=== PATIENT | female | born 1990 | race Caucasian/White ===

== ENCOUNTER → 2024-03-15 15:50 | Outpatient (CLI) | payer OTHER, SELFPAY ==
[2024-03-15 16:52] LABS: Basophils Absolute Auto 100 /uL (0-100); Basophils Percent Auto 1.2 % (0-2); Eosinophils Absolute Auto 300 /uL (0-450); Eosinophils Percent Auto 2.4 % (2-4); Hematocrit 39.3 % (36-46); Hemoglobin 13.4 g/dL (12.0-16.0); Lymphocytes Absolute Auto 5100 /uL (1100-4500); Lymphocytes Percent Auto 45.6 % (25-40); Mean Corpuscular Hemoglobin 26.9 PG (26-34); Mean Corpuscular Volume 78.9 fL (80-100); Monocytes Absolute Auto 600 /uL (0-900); Monocytes Percent Auto 5.2 % (3-14); Neutrophils Absolute Auto 5100 /uL (1500-7000); Neutrophils Percent Auto 45.6 % (50-75); Platelet Count 132 X10^3/uL (150-400); Red Blood Cell Count 4.98 X10^6/uL (4.0-5.2); Red Cell Distribution Width 14.8 % (11.6-14.8); White Blood Cell Count 11.2 X10^3/uL (4.5-11.0)
[2024-03-15 17:31] LABS: Add Manual Diff / Slide Review SLIDE REVIEW; Erythrocyte Sedimentation Rate 14 MM/HR (0-20)
[2024-03-15 17:33] LABS: RBC Morphology Normal Morphology
[2024-03-16 09:51] LABS: TSH w/ Reflex to FT4 2.18 uIU/mL (0.47-4.68)
== END ==
LOC: LAB 15:51
PROVIDERS: Family Provider Family Medicine; PCP Family Medicine; Referring Provider Family Medicine; Visit Provider Family Medicine
DX: R19.7 Diarrhea, unspecified (principal)
CPT/HCPCS: 84443; 85025; 85651

== ENCOUNTER → 2024-03-16 08:15 | Outpatient (CLI) | payer OTHER, SELFPAY ==
[2024-03-16 09:06] LABS: Alanine Aminotransferase 22 IU/L (<35); Albumin Globulin Ratio 1.2 (1.0-2.8); Alkaline Phosphatase 83 U/L (38-126); Aspartate Aminotransferase 20 IU/L (14-36); BUN Creatinine Ratio 16.7 (6-22); Bilirubin Total 0.3 mg/dL (0.2-1.3); Blood Urea Nitrogen 10 mg/dL (7-17); Calcium 9.1 mg/dL (8.4-10.2); Carbon Dioxide 25 mmol/L (22-32); Chloride 108 mmol/L (98-107); Estimated Glomerular Filt Rate > 60 mL/min (>60); Globulin 3.3 g/dL (1.7-4.1); Glucose 112 mg/dL (70-100); HEMOLYSIS < 15 (0-50); Potassium 3.7 mmol/L (3.4-5.1); Sodium 140 mmol/L (137-145); Total Protein 7.3 g/dL (6.3-8.2)
[2024-03-16 09:26] LABS: Occult Blood 1 Negative (Negative); Occult Blood 2 Negative (Negative); Occult Blood 3 Negative (Negative)
== END ==
PROVIDERS: Family Provider Family Medicine; PCP Family Medicine; Referring Provider Family Medicine; Visit Provider Family Medicine
DX: Z12.11 Encounter for screening for malignant neoplasm of colon (principal); R19.7 Diarrhea, unspecified
CPT/HCPCS: 80053; 82270; 83516; 83993

== ENCOUNTER 2024-05-13 17:11 | Emergency (ER) | payer OTHER, SELFPAY ==
[2024-05-13 17:30] VITALS: BP 182/109; PULSE 83; RESP 16; O2SAT 98; BMI 47.5
[2024-05-13 18:08] LABS: Add Manual Diff / Slide Review NO; Basophils Absolute Auto 200 /uL (0-100); Basophils Percent Auto 1.3 % (0-2); Eosinophils Absolute Auto 500 /uL (0-450); Eosinophils Percent Auto 3.6 % (2-4); Hematocrit 39.9 % (36-46); Hemoglobin 13.5 g/dL (12.0-16.0); Lymphocytes Absolute Auto 4900 /uL (1100-4500); Lymphocytes Percent Auto 33.9 % (25-40); Mean Corpuscular HGB Conc 33.7 % (30-36); Mean Corpuscular Volume 79.9 fL (80-100); Monocytes Absolute Auto 800 /uL (0-900); Monocytes Percent Auto 5.6 % (3-14); Neutrophils Absolute Auto 8000 /uL (1500-7000); Neutrophils Percent Auto 55.6 % (50-75); Platelet Count 395 X10^3/uL (150-400); Red Cell Distribution Width 14.9 % (11.6-14.8); White Blood Cell Count 14.3 X10^3/uL (4.5-11.0)
[2024-05-13 18:17] LABS: Alanine Aminotransferase 28 IU/L (<35); Albumin 4.3 g/dL (3.5-5.0); Albumin Globulin Ratio 1.2 (1.0-2.8); Alkaline Phosphatase 90 U/L (38-126); Aspartate Aminotransferase 24 IU/L (14-36); BUN Creatinine Ratio 7.9 (6-22); Bilirubin Total 0.4 mg/dL (0.2-1.3); Blood Urea Nitrogen 5 mg/dL (7-17); Calcium 8.9 mg/dL (8.4-10.2); Carbon Dioxide 20 mmol/L (22-32); Chloride 108 mmol/L (98-107); Estimated Glomerular Filt Rate > 60 mL/min (>60); Globulin 3.6 g/dL (1.7-4.1); Glucose 95 mg/dL (70-100); HEMOLYSIS < 15 (0-50); Lipase 212 U/L (23-300); Potassium 3.7 mmol/L (3.4-5.1); Sodium 139 mmol/L (137-145); Total Protein 7.9 g/dL (6.3-8.2)
[2024-05-13 22:13] VITALS: BP 156/81; PULSE 88; RESP 18; TEMP 36.5; O2SAT 100
[2024-05-14 01:30] VITALS: BP 152/106; PULSE 82; RESP 18; TEMP 36.5; O2SAT 100
--- NOTE | 2024-05-14 03:33 | PC.NURSE ---
Pt requested to have ultrasound guided IV removed. Advised pt that we do not have another US tech on site to place if she is in need of one, pt still requesting removal of IV.
--- NOTE | 2024-05-14 06:48 | PC.NURSE ---
Pt states that she had a one time episode of blood in toilet while at work. She has a history of hemrroids. Pt asking for exam and work not for 05/13 & 05/14
[2024-05-14 07:00] VITALS: BP 141/81; PULSE 83; O2SAT 97
--- NOTE | 2024-05-14 07:22 | ED.GIBLEED ---
HPI - GI Bleed General Chief complaint: GI Bleed Stated complaint: rectal bleeding Time Seen by Provider: 05/14/24 06:56 Source: patient Mode of arrival: Ambulatory History of Present Illness HPI Narrative: 34-year-old female presents for bright red blood in her stools yesterday. Reports history of internal hemorrhoids. Single bloody bowel movement, patient has been in the emergency department for 14 hours and has had no further episodes of bleeding. Denies history of abdominal surgeries, denies abdominal pain. Related Data Previous Rx's Medication Instructions Recorded cyclobenzaprine 10 mg tablet 10 mg PO HSP PRN #10 tabs 11/22/17 fluoxetine 40 mg capsule 40 mg PO DAILY #90 caps 11/23/23 propranolol 10 mg tablet 10 mg PO BID #180 tabs 11/23/23 losartan 25 mg tablet 25 mg PO DAILY #90 tabs 02/05/24 pantoprazole 40 mg tablet,delayed 40 mg PO DAILY #90 tabs 02/05/24 release dextroamphetamine-amphetamine 5 mg 5 mg PO BID #60 tabs 04/26/24 tablet (Adderall) dextroamphetamine-amphetamine 5 mg 5 mg PO BID #60 tabs 04/26/24 tablet (Adderall) dextroamphetamine-amphetamine 5 mg 5 mg PO BID #60 tabs 04/26/24 tablet (Adderall) Allergies Allergy/AdvReac Type Severity Reaction Status Date / Time No Known Drug Allergies Allergy Unverified 05/06/24 14:45 Review of Systems Review of Systems Narrative: See HPI Patient History Medical History Diarrhea Neck pain Migraines Anxiety ADHD Hypertension Surgical History Hx of appendectomy Social History Smoking Status: Never smoker Smoking Status: Never smoker alcohol intake frequency: other Substance Use Type: does not use Exam Initial Vital Signs Initial Vital Signs: Vital Signs Pulse Rate 83 05/13/24 17:30 Respiratory Rate 16 05/13/24 17:30 Blood Pressure 182/109 H 05/13/24 17:30 Pulse Oximetry 98 05/13/24 17:30 Oxygen Delivery Method Room Air 05/13/24 17:30 Const: Awake, alert, no acute distress, nontoxic appearing Cardiac: regular rate, regular rhythm RESP: unlabored, clear bilaterally, no wheezing GI: Soft, nontender, nondistended, no rebound, no guarding Rectal: Lead Electrical Engineer present, no external hemorrhoids, no gross blood, rectal tone intact Skin: Warm, Dry, intact, no rashes Neuro: AO x3, CN II-XII grossly intact, moves all extremities Course Orders Ordered: Discontinued Medications Ondansetron HCl (Ondansetron 4 Mg/2 Ml Inj) 4 mg IV NOW PRN PRN Reason: Nausea And Vomiting Ondansetron HCl (Ondansetron 4 Mg Odt) 4 mg PO NOW PRN PRN Reason: Nausea And Vomiting Vital Signs Vital signs: Vital Signs - 8 hr 05/14/24 07:00 05/14/24 07:00 Pulse Rate 83 Blood Pressure 141/81 H Pulse Oximetry 97 MDM - GI Bleed Differential Diagnosis Differential diagnosis: Likely hemorrhoids, infectious diarrhea and gastritis Lab Data 05/13/24 17:50 05/13/24 17:50 Labs: Lab Results 05/13/24 Range/Units 17:50 WBC 14.3 H (4.5-11.0) X10^3/uL RBC 5.00 (4.0-5.2) X10^6/uL Hgb 13.5 (12.0-16.0) g/dL Hct 39.9 (36-46) % MCV 79.9 L (80-100) fL MCH 27.0 (26-34) PG MCHC 33.7 (30-36) % RDW 14.9 H (11.6-14.8) % Plt Count 395 (150-400) X10^3/uL Neut % (Auto) 55.6 (50-75) % Lymph % (Auto) 33.9 (25-40) % [place] % (Auto) 5.6 (3-14) % Eos % (Auto) 3.6 (2-4) % Baso % (Auto) 1.3 (0-2) % Neut # (Auto) 8000 H (9721-8015) /uL Lymph # (Auto) 4900 H (2638-5659) /uL [place] # (Auto) 800 (0-900) /uL Eos # (Auto) 500 H (0-450) /uL Baso # (Auto) 200 H (0-100) /uL Sodium 139 (137-145) mmol/L Potassium 3.7 (3.4-5.1) mmol/L Chloride 108 H (98-107) mmol/L Carbon Dioxide 20 L (22-32) mmol/L BUN 5 L (7-17) mg/dL Creatinine 0.63 (0.52-1.04) mg/dL Estimated GFR > 60 (>60) mL/min BUN/Creatinine Ratio 7.9 (6-22) Glucose 95 (70-100) mg/dL Calcium 8.9 (8.4-10.2) mg/dL Total Bilirubin 0.4 (0.2-1.3) mg/dL AST 24 (14-36) IU/L ALT 28 (<35) IU/L Alkaline Phosphatase 90 (38-126) U/L Total Protein 7.9 (6.3-8.2) g/dL Albumin 4.3 (3.5-5.0) g/dL Globulin 3.6 (1.7-4.1) g/dL Albumin/Globulin Ratio 1.2 (1.0-2.8) Lipase 212 (23-300) U/L MDM Narrative Medical decision making narrative: Single episode of blood in stool over 12 hours ago. Abdomen soft, nontender. No gross blood on exam. Hemoglobin 13.5. At this time no indication for advanced imaging or further workup in the emergency department. Patient states that she was mostly here today for a note for work. She has an upcoming appointment next week with her primary care doctor for referral to GI for possible colonoscopy due to chronic diarrhea. Patient counseled to keep her appointment next week as scheduled. ED return precautions discussed at bedside. Note for work provided. Discharge Plan Departure Patient Disposition: Home Clinical Impression: Bright red rectal bleeding, Tendinitis of right hand Instructions: DI for Hemorrhoids Activity Restrictions/Additional Instructions: Your hemoglobin today is 13.5. Make sure that you keep your appointment next Monday with your doctor to go over possibilities of getting a colonoscopy. Prescriptions: No Action fluoxetine 40 mg capsule 40 mg PO DAILY Qty: 90 3RF propranolol 10 mg tablet 10 mg PO BID Qty: 180 3RF dextroamphetamine-amphetamine [Adderall] 5 mg tablet 5 mg PO BID Qty: 60 0RF dextroamphetamine-amphetamine [Adderall] 5 mg tablet 5 mg PO BID Qty: 60 0RF Rx Instructions: administer doses at least 4-6 hours apart dextroamphetamine-amphetamine [Adderall] 5 mg tablet 5 mg PO BID Qty: 60 0RF Rx Instructions: administer doses at least 4-6 hours apart cyclobenzaprine 10 MG tablet 10 mg PO HSP PRNQty: 10 0RF pantoprazole 40 mg tablet,delayed release (DR/EC) 40 mg PO DAILY Qty: 90 3RF losartan 25 mg tablet 25 mg PO DAILY Qty: 90 3RF Referrals: Maria Luz Beverly MD [Primary Care Provider] - Stand Alone Forms: Patient Portal/API, Work Release Note
== END 2024-05-14 07:30 | disposition home or self-care (01) ==
PROVIDERS: Emergency Medicine; Emergency Provider Emergency Medicine; Family Provider Family Medicine; PCP Family Medicine
DX: K62.5 Hemorrhage of anus and rectum (principal); M77.8 Other enthesopathies, not elsewhere classified
CPT/HCPCS: 80053; 83690; 85025; 99281; 99283

== ENCOUNTER 2024-07-18 12:54 | Day surgery (SDC) | payer OTHER, SELFPAY ==
--- NOTE | 2024-07-18 | PATH_ITS ---
[facility] Accession Number: [id number] No. of containers..04 Tissue . 01 Material submitted: . PART A: duodenum - DUODENUM PART B: colon - RIGHT COLON PART C: colon - TRANSVERSE PART D: colon - LEFT COLON . 01 Diagnosis: A. DUODENUM, BIOPSY: Duodenal mucosa with no diagnostic abnormality. Negative for active inflammation, features of sprue, dysplasia, or malignancy. . B-D: RIGHT COLON, TRANSVERSE, LEFT COLON, BIOPSIES: Lymphocytic colitis. Negative for granulomas, dysplasia, and malignancy. MRV 07/23/2024 1132 Local . 01 Electronically signed: . Tanesha Leung MD, Pathologist NPI- [id number] . 01 Gross description: . A. Received in formalin with two patient identifiers and duodenum, are two olmos soft tissue fragments, 0.2 to 0.3 cm in greatest dimension. Submitted in A1. B. Received in formalin with two patient identifiers and right colon, are two olmos soft tissue fragments, both measuring 0.3 cm in greatest dimension. Submitted in B1. C. Received in formalin with two patient identifiers and transverse colon, are three olmos soft tissue fragments, 0.2 to 0.3 cm in greatest dimension. Submitted in C1. D. Received in formalin with two patient identifiers and left colon, are two olmos soft tissue fragments, 0.2 to 0.6 cm in greatest dimension. Submitted in D1. ([id number]) /MRV 07/21/2024 1207 Local . 01 Pathologist provided ICD-10: K52.89 . 01 CPT . 668842, 050142, 509406, 102825 Specimen Comment: A courtesy copy of this report has been sent to [phone] Performed at: [address] [facility] [address] [address] [address], [place], [place] [id number] MD Alex Jones MD Phone: [phone]
[2024-07-18] MEDS: LACTATED RINGERS 1,000 ML 42 ML IV (13:21)
--- NOTE | 2024-07-18 13:21 | PM.HP.1 ---
History of Present Illness History of Present Illness Date Patient Seen: 07/18/24 Time Patient Seen: 13:21 Chief complaint: EGD/Colonoscopy Narrative: Jm is a 34 year woman who presents with chronic diarrhea and rectal bleeding. See the prior office note from May for details. [facility] Medical History Diarrhea Neck pain Migraines Anxiety ADHD Hypertension Surgical History Hx of appendectomy Social History marital status: unmarried,single details: Pt. lives with her parents and younger brother. household members: family lives independently: Yes occupational status: employed Smoking Status: Never smoker alcohol intake: never Meds Home Medications and Allergies Home Medications Medication Instructions Recorded Confirmed Type cyclobenzaprine 10 mg tablet 10 mg PO HSP PRN #10 tabs 11/22/17 06/03/24 Rx fluoxetine 40 mg capsule 40 mg PO DAILY #90 caps 11/23/23 06/03/24 Rx propranolol 10 mg tablet 10 mg PO BID #180 tabs 11/23/23 06/03/24 Rx losartan 25 mg tablet 25 mg PO DAILY #90 tabs 02/05/24 06/03/24 Rx pantoprazole 40 mg tablet,delayed 40 mg PO DAILY #90 tabs 02/05/24 06/03/24 Rx release dextroamphetamine-amphetamine 5 mg 5 mg PO BID #60 tabs 04/26/24 06/03/24 Rx tablet (Adderall) dextroamphetamine-amphetamine 5 mg 5 mg PO BID #60 tabs 04/26/24 06/03/24 Rx tablet (Adderall) dextroamphetamine-amphetamine 5 mg 5 mg PO BID #60 tabs 04/26/24 06/03/24 Rx tablet (Adderall) [id number] PO PRN 06/03/24 06/03/24 History [Excedrin Extra Strength] sodium,potassium,mag sulfates 17.5 See Rx Instructions PO .COMPLEX 06/10/24 Rx gram-3.13 gram-1.6 gram oral soln #354 mL (Suprep Bowel Prep Kit) Allergies Allergy/AdvReac Type Severity Reaction Status Date / Time No Known Drug Allergies Allergy Unverified 06/03/24 09:27 Exam Const General: healthy appearing Resp Effort & Inspection: normal respiratory effort Assessment & Plan Assessment and plan (1) Rectal bleeding: Status: Acute (2) Diarrhea: Qualifiers: Diarrhea type: unspecified type Qualified Code(s): R19.7 - Diarrhea, unspecified Status: Acute Plan EGD and colonoscopy Time-Based Coding :: [TOTAL MINUTES] spent with patient and on the chart (including review of chart, obtaining history, exam, reviewing outside data, placing orders, documenting exam and treatment plan, and counseling patient) on [DATE].
[2024-07-18 13:29] VITALS: BP 138/84; PULSE 116; RESP 18; TEMP 36.6; BMI 44.6
--- NOTE | 2024-07-18 13:55 | PM.OP.EC ---
Operative Date/Time/Diagnoses Date of procedure: 07/18/24 Time of procedure: 13:55 Pre-op diagnosis: Chronic diarrhea and rectal bleeding Post-op diagnosis: same Procedure & Clinicians Study performed: EGD and colonoscopy Same procedure as scheduled: Yes Surgeon: Steven Shipley Procedure Notes Procedure in detail: Surgeon: Steven Shipley MD Anesthesia: Bibiana Masters CRNA Procedure in detail: A timeout was performed. A bite blocked was placed and monitors were attached to the patient. The patient was positioned in the left lateral decubitus position. Sedation was administered. Once the patient was sedated the endoscope was inserted through the bite block and passed through the esophagus and stomach and into the duodenum. No abnormalities were seen. Random biopsies were taken from the duodenal mucosa with forceps. We then withdrew the scope into the stomach. No abnormalities were seen. The endoscope was retroflexed and no significant hiatal hernia was seen. The endoscope was straightned and withdrawn into the esophagus. No abnormalities were seen in the esophagus. EGD findings: Normal EGD Next we repositioned the patient for a colonoscopy. A digital rectal exam was performed and was normal. The colonoscope was inserted and advanced to the cecum. The appendiceal orifice was identified and photographed. The scope was slowly withdrawn over greater than 6 minutes. No abnormalities were identified. Random biopsies were taken with the cold forceps from the right colon, transverse colon and left colon. The scope was retroflexed in the rectum. No other abnormalities were identified. Colonoscopy findings: Normal colon Total procedural EBL: 5 mL Scope withdrawal time: 8 minutes Sedation minutes: 20 minutes Post-procedure Disposition: PACU
[2024-07-18 13:58] VITALS: BP 125/81; PULSE 78; RESP 14; TEMP 36.4; O2SAT 97
[2024-07-18 14:02] VITALS: BP 126/83; PULSE 78; RESP 13; O2SAT 97
[2024-07-18 14:23] VITALS: BP 122/72; PULSE 74; RESP 16; TEMP 36.8; O2SAT 98
== END 2024-07-18 14:33 | disposition home or self-care (01) ==
PROVIDERS: Family Provider Family Medicine; PCP Family Medicine; Referring Provider Surgery; Visit Provider Surgery
PROC: 0DJ08ZZ Inspection of Upper Intestinal Tract, Via Natural or Artificial Opening Endoscopic (ICD-10-PCS; CPT 45380; principal; 2024-07-18 14:30)
PROC: 0DJD8ZZ Inspection of Lower Intestinal Tract, Via Natural or Artificial Opening Endoscopic (ICD-10-PCS; CPT 45378; 2024-07-18 14:30)
DX: K52.832 Lymphocytic colitis (principal)
CPT/HCPCS: 45380; 43239; J2704

== ENCOUNTER → 2024-09-04 08:11 | Outpatient (CLI) | payer OTHER, SELFPAY ==
[2024-09-04 09:15] LABS: Pregnancy Test Urine Negative (Negative)
== END ==
PROVIDERS: Family Provider Family Medicine; PCP Family Medicine; Referring Provider Family Medicine; Visit Provider Family Medicine
DX: Z30.09 Encounter for other general counseling and advice on contraception (principal)
CPT/HCPCS: 81025

== ENCOUNTER 2024-11-22 18:14 | Emergency (ER) | payer OTHER, SELFPAY ==
[2024-11-22 18:45] VITALS: BP 138/90; PULSE 100; RESP 16; TEMP 37.2; O2SAT 99; BMI 48.6
[2024-11-22 21:23] VITALS: BP 172/101; PULSE 94; O2SAT 97
[2024-11-22 21:30] VITALS: PULSE 90; O2SAT 99
[2024-11-22 21:31] VITALS: BP 170/125; PULSE 90; RESP 18; O2SAT 99
--- NOTE | 2024-11-22 21:31 | ED.WOUNDLAC ---
HPI - Wound/Laceration General Chief Complaint: Wound/Laceration Stated Complaint: Poss Infected Cat Scratch, Facial Swelling Time Seen by Provider: 11/22/24 18:48 History of Present Illness HPI narrative: 34-year-old female presents for evaluation of cat scratch and facial swelling. 3 days ago patient was accidentally scratched by her pet cat breaking up an altercation between the CT and their dog. She immediately washed the area off with clean water. The next day she went to the walk-in clinic and was prescribed Augmentin and an antibiotic ointment, but she was not able to pickers material handlers up from the pharmacy until today. She has only taken 1 dose of her antibiotics so far. She says that she was mostly here because she was concerned that the infection has spread around her eyes Related Data Home Medications Medication Instructions Recorded Confirmed [id number]-[id number] PO PRN 06/03/24 11/20/24 [Excedrin Extra Strength] Previous Rx's Medication Instructions Recorded cyclobenzaprine 10 mg tablet 10 mg PO HSP PRN #10 tabs 11/22/17 fluoxetine 40 mg capsule 40 mg PO DAILY #90 caps 11/23/23 propranolol 10 mg tablet 10 mg PO BID #180 tabs 11/23/23 losartan 25 mg tablet 25 mg PO DAILY #90 tabs 02/05/24 pantoprazole 40 mg tablet,delayed 40 mg PO DAILY #90 tabs 02/05/24 release dextroamphetamine-amphetamine 5 mg 5 mg PO BID #60 tabs 04/26/24 tablet (Adderall) dextroamphetamine-amphetamine 5 mg 5 mg PO BID #60 tabs 04/26/24 tablet (Adderall) dextroamphetamine-amphetamine 5 mg 5 mg PO BID #60 tabs 04/26/24 tablet (Adderall) amoxicillin 875 mg-potassium 1 tab PO BID #14 tabs 11/20/24 clavulanate 125 mg tablet mupirocin 2 % topical ointment 1 applic topical TID #15 grams 11/20/24 Allergies Allergy/AdvReac Type Severity Reaction Status Date / Time No Known Drug Allergies Allergy Verified 11/20/24 17:05 Patient History Medical History Lymphocytic colitis Diarrhea Neck pain Migraines Anxiety ADHD Hypertension Surgical History Hx of appendectomy Social History marital status: unmarried,single details: Pt. lives with her parents and younger brother. household members: family lives independently: Yes occupational status: employed Smoking Status: Never smoker alcohol intake: never Smoking Status: Never smoker alcohol intake frequency: other Exam Initial Vital Signs Initial Vital Signs: Vital Signs Temperature 98.9 F 11/22/24 18:45 Pulse Rate 100 H 11/22/24 18:45 Respiratory Rate 16 11/22/24 18:45 Blood Pressure 138/90 11/22/24 18:45 Pulse Oximetry 99 11/22/24 18:45 Oxygen Delivery Method Room Air 11/22/24 18:45 Const: Awake, alert, no acute distress, nontoxic appearing Eyes: PERRL, EOMI, conjunctiva normal. Periorbital puffing Skin: multiple superficial abrasions scattered across forehead. trace surrounding erythema. No fluctuance, no induration Neuro: AO x3, CN II-XII grossly intact, moves all extremities Course Orders Ordered: Discontinued Medications Dexamethasone (Dexamethasone 10 Mg/Ml Vial) 10 mg PO NOW ONE Stop: 11/22/24 21:32 Last Admin: 11/22/24 21:40 Dose: 10 mg Documented By: EVELINA Diphenhydramine HCl (Diphenhydramine 25 Mg Tablet) 50 mg PO NOW ONE Stop: 11/22/24 21:32 Last Admin: 11/22/24 21:42 Dose: 50 mg Documented By: EVELINA Famotidine (Famotidine 20 Mg Tablet) 20 mg PO BID LACY Last Admin: 11/22/24 21:45 Dose: 20 mg Documented By: EVELINA Vital Signs Vital signs: Vital Signs - 8 hr 11/22/24 18:45 Temperature 98.9 F Pulse Rate 100 H Respiratory Rate 16 Blood Pressure 138/90 Pulse Oximetry 99 Oxygen Delivery Method Room Air MDM - Wound/Laceration MDM Narrative Medical decision making narrative: Patient presenting for periorbital swelling after being scratched by a cat. The cat scratches actually appear to be in the process of healing well with very minimal surrounding erythema. The periorbital puffing that it was seen is not erythematous, excessively warm, or tender to palpation. Low suspicion for periorbital cellulitis at this time. This appears to be more allergic in nature or reactive. Patient counseled to take Benadryl and apfr-yzh-zpqfver allergy medications for swelling. If she was not notice improvement or has worsening she should come back for repeat evaluation, however at this time it does not appear to be cellulitic in nature. Discharge Plan Departure Patient Disposition: Home Clinical Impression: Cat scratch, Periorbital swelling Instructions: DI for Minor Laceration Activity Restrictions/Additional Instructions: The wounds on your forehead and face look like they have been cleaned well. Keep taking the antibiotics prescribed to you by the walk-in clinic. The swelling around your eyes does not appear to be infected at this moment. The appearance actually looks to be somewhat allergic. Take Benadryl and an wjzk-nsb-jvywrjw allergy medication such as Claritin or Zyrtec for the swelling. Apply ice packs to the eyes for comfort. If you notice changes in vision, fevers, severe headaches, any other concerning symptoms and do not seem to be responding to treatment please come back to the ER for repeat evaluation. Prescriptions: No Action amoxicillin-pot clavulanate 875-125 mg tablet 1 tab PO BID Qty: 14 0RF mupirocin 2 % ointment 1 applic topical TID Qty: 15 0RF fluoxetine 40 mg capsule 40 mg PO DAILY Qty: 90 3RF propranolol 10 mg tablet 10 mg PO BID Qty: 180 3RF dextroamphetamine-amphetamine [Adderall] 5 mg tablet 5 mg PO BID Qty: 60 0RF dextroamphetamine-amphetamine [Adderall] 5 mg tablet 5 mg PO BID Qty: 60 0RF Rx Instructions: administer doses at least 4-6 hours apart dextroamphetamine-amphetamine [Adderall] 5 mg tablet 5 mg PO BID Qty: 60 0RF Rx Instructions: administer doses at least 4-6 hours apart cyclobenzaprine 10 MG tablet 10 mg PO HSP PRNQty: 10 0RF pantoprazole 40 mg tablet,delayed release (DR/EC) 40 mg PO DAILY Qty: 90 3RF losartan 25 mg tablet 25 mg PO DAILY Qty: 90 3RF sbrzcms-ruaswuoifypvl-plrjmesm [Excedrin Extra Strength] PO PRN Referrals: Maria Luz Beverly MD [Primary Care Provider] - Stand Alone Forms: Patient Portal/API/Survey, Work Release Note
[2024-11-22] MEDS: DEXAMETHASONE 10 MG/ML VIAL PO (21:40)
[2024-11-22] MEDS: diphenhydrAMINE 25 MG TABLET 50 MG PO (21:42)
[2024-11-22] MEDS: FAMOTIDINE 20 MG TABLET PO (21:45)
== END 2024-11-22 21:49 | disposition home or self-care (01) ==
PROVIDERS: Emergency Provider Emergency Medicine; Family Provider Family Medicine; PCP Family Medicine
DX: S00.81XA Abrasion of other part of head, initial encounter (principal); W55.03XA Scratched by cat, initial encounter; R22.0 Localized swelling, mass and lump, head
CPT/HCPCS: 99283; A9270; J1100